=== PATIENT | male | born 1945 | race Caucasian/White ===

== ENCOUNTER 2020-04-30 14:35 | Emergency (ER) | payer MEDICARE, SELFPAY ==
[2020-04-30 14:37] VITALS: BP 183/70; PULSE 87; RESP 16; TEMP 36.4; O2SAT 97; BMI 25.4
--- NOTE | 2020-04-30 15:06 | ED.VIS.GEN ---
History of Present Illness Chief Complaint: Nosebleed Informant: Patient Onset: Today Context: Sudden Onset Narrative: Patient is a 74-year-old male with history of hypertension presenting from home for nosebleed. Patient states it started bleeding spontaneously about 30 minutes prior to arrival out of the left nares. He had another nosebleed 3 days ago that stopped on its own. He notes he has been feeling that there is some congestion in his inner ears and is worried he might have a sinus infection. He is not on any anticoagulation. He denies any trauma to his nose. He denies any significant history of nosebleeds. He does not have an ENT. He denies any other complaints at this time. Past Medical History - Allergies and Home Meds Allergies/Adverse Reactions: Allergies No Known Allergies Allergy (Verified 04/30/20 14:36) Primary Care Physician: Del Richter MD [STAFF PHYSICIAN] - Past Medical History: - - Hypertension Surgical History: noncontributory Smoking Status: Never smoker Review of Systems General: Denies: Chills, Fever, Sweats Eyes: Denies: Visual changes - bilaterally, Diplopia ENT: Reports: - - Epistaxis, - - Ear fullness. Denies: Left ear pain, Right ear pain Cardiovascular: Denies: Chest pain, Palpitations Respiratory: Denies: Dyspnea, Cough Gastrointestinal: Denies: Abdominal pain, Nausea, Vomiting, Diarrhea Musculoskeletal: Denies: Back pain, Extremity Pain Skin: Denies: Rash, Wounds Neurological: Denies: Headache, Weakness, Numbness Physical Exam Vital Signs/Narrative: Vital Signs Temp Pulse Resp BP Pulse Ox 04/30/20 14:37 97.6 F L 87 16 183/70 H 97 Inital Vital Signs reviewed: Yes General: Well nourished, Well developed, No Acute Distress Head: Normocephalic, Atraumatic Eyes: Perrl, EOMI. Negative for: Pale conjunctiva ENT: Moist mucous membranes, No rhinorrhea, TM's clear, - - Epistaxis noted from the left nares, appears to be anterior. No active bleeding noticed in the oropharynx. Negative for: Sinus tenderness Neck: Supple, Nontender Cardiovascular: Regular rate, Regular rhythm, No murmurs Respiratory: No distress, CTA bilaterally, Chest nontender Abdomen: Soft, Nontender, Nondistended, Normal bowel sounds Back: Nontender, Normal Inspection Extremities: Nontender, No edema Skin: Normal color, No rash Neurological: Alert, Oriented x3, Cranial nerves II-XII grossly intact, Normal Strength, Normal Sensation Psychological: Normal affect, Normal Mood Diagnostic/Tx/Re-eval - Medical Decision Making Patient is evaluated for spontaneous epistaxis. He appears nontoxic in no acute distress. Does not have any other abnormal bleeding such as bleeding gums, hematuria or blood in stool. He said his recent labs were normal. He is not on any anticoagulants. Direct pressure is applied to the nose and Afrin soaked cottonball is placed in the nose with pressure. Reevaluation patient still has some slight bleeding. The exact source of bleeding is not able to be visualized so I am unable to perform silver nitrate cautery. A 5.5 cm nasal packing is placed in the right nares and inflated. Patient tolerated this well. He has no further bleeding. He will follow-up with ENT for removal return to the emergency room within the week. He is instructed to alternate Tylenol and ibuprofen as needed for discomfort associate with the nasal packing. He declines any stronger analgesic. Patient is counseled on signs and symptoms requiring return to the emergency room. Patient verbalizes agreement and understand this plan. Patient discharged home in stable and improved condition. ED Disposition - Plan for ED Patient: Disposition: Home or Assisted Living Diagnosis: Epistaxis Instructions: Nosebleed Referrals: Del Richter MD [STAFF PHYSICIAN] - Additional Instructions: Please keep packing in until you can be seen by the ear nose and throat doctor. Call the office on Friday to schedule an appointment. You may take Tylenol or ibuprofen as needed for discomfort associated with the packing. Packing should be removed by 5 to 7 days.
[2020-04-30] MEDS: Oxymetazoline 0.05% 1 SPRAY SPRAY.BTL 2 SPRAY NASAL (15:09)
[2020-04-30 15:11] VITALS: BP 169/94; PULSE 81; RESP 16; O2SAT 97
[2020-04-30] MEDS: Silver Nitrate (BKC) 1 EACH TOPICAL (15:50)
[2020-04-30 16:24] VITALS: BP 162/98; PULSE 80; RESP 16
== END 2020-04-30 16:25 | disposition home or self-care (01) ==
PROVIDERS: Emergency Provider Emergency Medicine; PCP Family Medicine
DX: R04.0 Epistaxis (principal); I10 Essential (primary) hypertension; Z79.899 Other long term (current) drug therapy
CPT/HCPCS: 30901; 99282; A4216

== ENCOUNTER 2022-10-16 20:31 | Emergency (ER) | payer MEDICARE, SELFPAY ==
[2022-10-16 20:33] VITALS: BP 168/93; PULSE 100; RESP 15; TEMP 36.7; O2SAT 97; BMI 31.0
--- NOTE | 2022-10-16 21:02 | EDS_ITS ---
HPI History of Present Illness Chief Complaint: Hypertension [facility] Medical History (Updated 10/16/22 @ 22:[address] Hang Lai, DO) Hypertension Home Medications clonidine HCl 0.1 mg tablet 0.1 mg PO BID PRN Hypertensive Emergency 01/02/14 [History Last Taken 10/16/22 19:49] amlodipine 10 mg-olmesartan 40 mg tablet 1 tab PO DAILY 04/30/20 [History Last Taken Unknown] amlodipine 5 mg-olmesartan 40 mg tablet tab 10/16/22 [History Last Taken 10/16/22] meclizine 25 mg tablet 25 mg PO TID PRN dizziness 7 days #21 tabs 10/16/22 [Rx Last Taken Unknown] Allergy/AdvReac Type Severity Reaction Status Date / Time No Known Allergies Allergy Verified 10/16/22 20:37 Surgical History (Updated 10/16/22 @ 20:47 by Derrick Caceres) History of cardiac catheterization Hx of appendectomy Hx of tonsillectomy Social History Smoking Status: Never smoker EXAM Physical Exam Const Vital Signs: 10/16/22 20:33 10/16/22 20:42 10/16/22 22:26 Temperature 98.0 F Temperature Source Temporal Pulse Rate 100 87 Respiratory Rate 15 13 Respiratory Effort Normal Short of Breath Respiratory Pattern Normal Blood Pressure 168/93 H 146/89 H Blood Pressure Mean 118 108 Pulse Ox 97 96 Oxygen Delivery Method Room Air Room Air MDM MDM MDM Narrative Medical decision making narrative: HISTORY OF PRESENT ILLNESS: 77-year-old male here with concern for elevated blood pressure. Notes he felt fatigued and had a vertigo episode around 3 a.m. Notes he was up most of the night. States at this time symptoms are worse with head motion. He denies any chest pain, shortness of breath. Denies any bleeding diathesis. Denies any lower extremity edema. Denies any focal weakness. REVIEW OF SYSTEMS: Pertinent positives: Fatigue, dizziness (resolved) Pertinent negatives: focal weakness, CP PHYSICAL EXAM: Nursing triage notes reviewed, Vital signs reviewed Constitutional: please see mdm HENT: MMM Eyes: Pupils equal round and reactive to light, Extraocular muscles intact Neck: No stridor, no JVD, full neck ROM Lungs: Clear to auscultation, No wheezing or rales. No increased work of breathing, no conversational dyspnea, no accessory muscle use, no nasal flaring. No respiratory distress noted Heart: Regular rate and rhythm, No murmurs, No rubs and No gallops, 2+ distal pulses (radial, femoral, posterior tibial) in all extremities Abdomen: Soft, there is no tenderness, rigidity, rebound or guarding, no obvious peritoneal signs, no palpable pulsatile abdominal masses, no auscultated abdominal bruit : No CVAT Extremities: No edema Neuro: Alert and oriented x3, neuro exam at baseline, cranial nerves II through XII are intact. No pain with extraocular muscle movement. There is negative test of skew. Normal speech. 5 of 5 strength in upper and lower extremities in flexion extension. Intact sensation to light touch in upper and lower extremity dermatomes. No truncal or extremity ataxia. No dysdiadochokinesia. Normal gait. 2+ reflexes. No meningeal signs. Negative Babinski. NIH of 0 Skin: No rash or lesions noted MEDICAL DECISION MAKING: Chief Complaint: High blood pressure, dizziness and fatigue External records reviewed: No recent ED visits or hospitalizations noted in the Factors affecting care: Hypertension Social determinants of health: none History obtained from others: none Consults: none ALL IMAGES (IF OBTAINED) HAVE BEEN PERSONALLY REVIEWED AND INTERPRETED BY MYSELF. EKG with normal sinus rhythm, left axis deviation, prolonged QT, no obvious STEMI MDM Narrative: Patient was initially mildly hypertensive otherwise hemodynamically stable, afebrile and nontoxic-appearing. Exam without focal neurologic deficits. No focal cardiopulmonary abnormalities I considered the following differential diagnosis: ACS, arrhythmia, anemia, pneumonia, electrolyte abnormality, dehydration, TIA, CVA I obtained a broad lab and imaging work-up to further elucidate the etiology the patient's complaints. Labs images were unremarkable for signs of endorgan hypoperfusion, myocardial ischemia, anemia. Imaging was unremarkable for evidence of pneumonia. No clear life-limiting etiology to be ascertained. The patient was asymptomatic. Blood pressure was well controlled here without intervention. Given meclizine for symptomatic relief of dizziness and vertigo at home. Given strict return precaution and follow-up instructions. I completed a structured, evidence-based clinical evaluation to screen for acute stroke and neurologic deficits in this patient. The patient has a normal detailed neurologic exam, which is highly sensitive for dangerous causes of dizziness, vertigo, or loss of balance. The evidence indicates that the patient is very low risk for an acute neurologic emergency and this is consistent with my clinical intuition. The risk of further workup or hospitalization is likely higher than the risk of the patient having a stroke or other dangerous neurologic condition. It is, therefore, in the patient?s best interest not to do additional emergent testing or to be hospitalized at this time. Shared Decision-Making I have discussed with the patient my clinical impression and the result of an evidence-based clinical evaluation to screen for stroke, as well as the risk of further testing and hospitalization. The evidence shows that the risk for stroke is less than 1%. Although the risk of stroke has not been completely eliminated, the risks of further testing or hospitalization likely exceed any potential benefit, and the patient agrees with not pursuing further emergent evaluation or hospitalization for stroke evaluat ion at this time. The patient and/or family, caregivers express understanding. The patient and/or family, caregivers agrees with the plan. Total critical care time today provided was at least 0 [] minutes. This excludes separately billable procedures. Critical care time (if documented) is secondary to the patient having high probability of clinically significant/life threatening deterioration in the patient's condition which required my urgent intervention. Lab Data Attestation: I reviewed the patient's lab results. Labs: Laboratory Results - last 24 hr 10/16/22 21:02 WBC 8.4 RBC 5.09 Hgb 15.7 Hct 46.5 MCV 91.4 MCH 30.8 MCHC 33.8 RDW Std Deviation 41.9 RDW Coeff of Mariel 12.7 Plt Count 262 MPV 10.0 Sodium 140 Potassium 3.4 L Chloride 106 Carbon Dioxide 27.0 Anion Gap 7 BUN 12 Creatinine 1.04 Estim Creat Clear Calc 74.96 Est GFR (MDRD) Af Amer 89 Est GFR (MDRD) Non-Af 74 BUN/Creatinine Ratio 11.5 Glucose 166 H Calcium 9.4 Troponin I High Sens 4 Radiography Chest X-Ray - ED: Read by ED Physician Diagnostic Testing: Clinical Impression(s) from Imaging Studies Chest X-Ray 10/16/22 21:48 IMPRESSION: No definite acute or significant abnormality seen. Electronically Signed: Marcell Rodriguez MD at 22:21 EDT , I have personally reviewed the patient's chest x-ray. Chest x-ray is unremarkable for pulmonary edema, pneumothorax, pneumonia or focal cardiopulmonary abnormality. Discharge Plan Triage Chief Complaint: Hypertension ED Provider: Hang Lai Dx/Rx/DC Orders Clinical Impression: Elevated blood pressure reading, Fatigue, Dizziness Instructions: ED High Blood Pressure Hypertension Prescriptions: New meclizine 25 mg tablet 25 mg PO TID PRN (Reason: dizziness) 7 Days Qty: 21 0RF No Action clonidine HCl 0.1 MG tablet 0.1 mg PO BID PRN (Reason: Hypertensive Emergency) amlodipine-olmesartan 1 EACH tablet 1 tab PO DAILY amlodipine-olmesartan 5-40 mg tablet Patient Comments: Take one tablet by mouth daily. Primary Care Provider: Dona Jerez Referrals: Dona Jerez, DO [Primary Care Provider] - Activity Restrictions/Additional Instructions: Thank you for trusting us with your care today! Please take Tylenol (2 pills, 650 mg), ibuprofen (2 pills, 400 mg) every 6 hours as needed for pain and fever control. Please take meclizine as needed for dizziness at home. Please continue to take high blood pressure medicine as prescribed Please return to the emergency department if your symptoms change or worsen. S pecifically you develop focal weakness, numbness, slurred speech, loss of vision, incoordination. Please follow with your primary care physician for further outpatient evaluation and blood pressure medicine management. Disposition Disposition: Home, Self Care
[2022-10-16 21:46] LABS: Hematocrit 46.5 % (40-54); Hemoglobin 15.7 g/dL (13.0-16.5); Mean Corp Hgb Conc 33.8 g/dL (32-36); Mean Corpuscular Hgb 30.8 pg (27.0-32.0); Mean Corpuscular Volume 91.4 fL (80-94); Platelet Count 262 K/mm3 (150-450); RBC Distribution Width CV 12.7 % (11.6-14.6); RBC Distribution Width SD 41.9 fl (35.1-43.9); Red Blood Count 5.09 M/mm3 (4.6-6.2); White Blood Count 8.4 K/mm3 (4.4-11.0)
--- NOTE | 2022-10-16 21:48 | RAD_ITS ---
STUDY: X-RAY CHEST REASON FOR EXAM: Male, 77 years old. fatigue TECHNIQUE: Single AP portable view of the chest. COMPARISON: None. FINDINGS: The lungs are clear and expanded. There is no demonstrated pleural abnormality. Normal size heart. Normal mediastinum and jamie. Normal visualized pulmonary arteries. There is atherosclerotic calcification of the aortic arch with tortuosity. Small to moderate hiatal hernia is seen. Normal visualized thoracic spine. There is degenerative osteoarthritis of the bilateral shoulders. There is no demonstrated abnormality of the visualized soft tissue structures of the upper abdomen. RAD/Chest 1 View (Portable) IMPRESSION: No definite acute or significant abnormality seen. Electronically Signed: Marcell Rodriguez MD at 22:21 EDT ,
[2022-10-16 22:04] LABS: Anion Gap 7 (5-15); BUN 12 mg/dL (7-18); BUN/Creat Ratio 11.5 RATIO (10-20); Calcium,Total 9.4 mg/dL (8.5-10.1); Chloride 106 mmol/L (98-107); Creatinine, Serum 1.04 mg/dL (0.70-1.30); EST Glomerular Filtration Rate 74 mL/min (>60); Est Glom Filt Rate - Afr Amer 89 mL/min (>60); Estimated Creatinine Clearance 74.96 ml/min; Glucose 166 mg/dL (74-106); Potassium 3.4 mmol/L (3.5-5.1); Sodium Level 140 mmol/L (136-145); Troponin-I HS 4 pg/mL (3.0-78.0)
--- NOTE | 2022-10-16 22:04 | EKG12_ITS ---
Test Reason : HYPERTENSION Blood Pressure : / mmHG Vent. Rate : 088 BPM Atrial Rate : 088 BPM P-R Int : 160 ms QRS Dur : 120 ms QT Int : 390 ms P-R-T Axes : 022 -45 002 degrees QTc Int : 471 ms Normal sinus rhythm RSR' or QR pattern in V1 suggests right ventricular conduction delay Left anterior fascicular block Nonspecific ST abnormality Abnormal ECG Confirmed by CHRISTI SPENCER, NOY ([id number]), image editor ROD SULLIVAN ([id number]) on 10/17/2022 2:27:34 PM Referred By: IVAN Confirmed By:NOY BARRAZA MD
[2022-10-16 22:26] VITALS: BP 146/89; PULSE 87; RESP 13; O2SAT 96
== END 2022-10-16 23:11 | disposition home or self-care (01) ==
PROVIDERS: Emergency Provider Emergency Medicine; PCP Family Medicine; Visit Provider Emergency Medicine
DX: I10 Essential (primary) hypertension (principal); R42 Dizziness and giddiness; R53.83 Other fatigue; Z79.899 Other long term (current) drug therapy
CPT/HCPCS: 71045; 80048; 84484; 85027; 93005; 96360; 99284; J7040; A4216

== ENCOUNTER → 2024-09-08 | Outpatient (CLI) | payer MEDICARE, SELFPAY ==
--- NOTE | 2024-09-08 15:21 | NEURO_ITS ---
NCS and/or EMG Patient Report Ordering Doctor: Neda Campbell DATE OF SERVICE: 09/08/24 Aman presents for electrodiagnostic testing of the right upper limb. He reports weakness in the right hand. Electrodiagnostic findings: Right median motor nerve demonstrates borderline prolonged distal latency with normal amplitude and reduced conduction velocity. Normal right ulnar motor response. Prolonged right and left median F?wave. Prolonged right median sensory latency at the wrist. Needle EMG testing was per formed in the right upper limb. All muscles tested showed no evidence of denervation with normal motor unit action potentials. No denervation noted in the cervical paraspinals or radial innervated muscles. Electrodiagnostic impression: This is an abnormal study of the right upper limb 1. Electrodiagnostic findings suggestive of right-sided median mononeuropathy. This is consistent with a mild to moderate right carpal tunnel syndrome. Multi Select Codes Neurology Neurology Interp Codes: 98957-72 Musc test done w/n test comp (interp) and 05811-48 Nrv cndj tst 5-6 studies (interp)
== END | disposition home or self-care (01) ==
LOC: PSN 14:06
PROVIDERS: PCP Family Medicine
DX: M79.641 Pain in right hand (principal); M19.041 Primary osteoarthritis, right hand; R20.2 Paresthesia of skin
CPT/HCPCS: 95886; 95909